=== PATIENT | female | born 1950 | race Caucasian/White ===

== ENCOUNTER 2016-07-31 10:09 | Day surgery (SDC) | payer OTHER ==
[~2016-07-31 10:09] MED LIST: Acetaminophen TAB* 325 MG PO PRN; Buffered Lidocaine 0.9% SYRIN* 5 ML/SYR SYRINGE INTRADERM ONE
[2016-07-31] MEDS ORDERED: Midazolam* 1 MG/ML 2 ML VIAL (2 MG) ONE (11:15)
[2016-07-31 12:07] VITALS: BP 134/72
[2016-07-31] MEDS ORDERED: Povidone Iodine 5% OPTH* 30 ML BTL ONE (14:21)
[2016-07-31] MEDS ORDERED: acetaZOLAMIDE TAB* 250 MG ONE (14:21)
[2016-07-31] MEDS ORDERED: Lidocaine 1% MPF* 2 ML VIAL ONE (14:21)
[2016-07-31] MEDS ORDERED: Neomycin/Polymy/Dex OPHTH.OIN* 3.5 GM ONE (14:21)
[2016-07-31] MEDS ORDERED: Phenylephrine 2.5% OPTH.SOL* 2 ML BTL ONE (14:21)
[2016-07-31] MEDS ORDERED: Flurbiprofen 0.03% OPTH.SOL* 2.5 ML BTL ONE (14:21)
[2016-07-31] MEDS ORDERED: Cyclopentolate 1% OPTH.SOL* 2 ML BTL ONE (14:21)
[2016-07-31] MEDS ORDERED: Tropicamide 1% OPTH.SOL* BTL ONE (14:22)
[2016-07-31] MEDS ORDERED: Buffered Lidocaine 0.9% SYRIN* 5 ML/SYR SYRINGE ONE (14:22)
[2016-07-31] MEDS ORDERED: Tetracaine 0.5% OPTH.SOL 4 ML* 1 DROP BTL ONE (14:22)
--- NOTE | 2016-08-01 07:57 | OP ---
DATE OF OPERATION: 07/31/16 - FORMERLY [facility] DATE OF : 54 SURGEON: Topher Thompson MD ANESTHESIOLOGIST: Mandeep Dyer MD ANESTHESIA: Monitored anesthesia care. PRE-OP DIAGNOSIS: Cataract, right eye. POST-OP DIAGNOSIS: Cataract, right eye. OPERATIVE PROCEDURE: Cataract surgery in the right eye. ANESTHESIA: Monitored anesthesia care. IMPLANT: SN60WF 23.5 diopter lens to the right eye. COMPLICATIONS: None. DESCRIPTION OF PROCEDURE: The patient was given phenylephrine 2.5% and cyclopentolate 1% eye drops to the operative eye in the preoperative area. The patient was brought to the operating room, where time-out was taken to identify the correct patient, site, and side of the surgery. The patient's right eye was prepped and draped in the usual sterile fashion with 5% Betadine. A second time- out was taken to verify the correct patient, site, and side of surgery, and correct lens selection. A lid speculum was placed to the right eye. A 1- mm paracentesis blade was used to make a clear corneal incision in the superotemporal position. Preservative-free 1% lidocaine was injected in the anterior chamber. DisCoVisc was then injected in the anterior chamber. A 2.75- mm keratome blade was used to make a triplanar incision at the inferotemporal position. A cystotome initiated a capsulorrhexis, which was completed with Utrata forceps in a continuous and curvilinear manner. Hydrodissection of the lens was performed with BSS on a cannula. The lens could be spun in the capsular bag. The phacoemulsification handpiece was used with divide-and- conquer technique to remove the nucleus in its entirety with 13.9 CDE. The I/A handpiece then removed the residual cortical lens material. DuoVisc was injected to inflate the capsular bag. Planned SN60WF 23.5 diopter lens was then injected into the capsular bag. The residual viscoelastic was removed from the eye with the I/A handpiece. The corneal incisions were hydrated and no leaks occurred at physiologic pressure around 20 mmHg per palpation. The lid speculum was then removed and drapes removed. Maxitrol ointment was placed on the surface of the operative eye. An adhesive patch and shield was placed on the operative eye. The patient was taken to the postoperative area in stable condition. [id number]/[facility] #: [id number] MTDHernandez
== END 2016-07-31 12:23 | disposition home or self-care (01) ==
LOC: OREAST 10:09
PROVIDERS: ATTEND Student in an Organized Health Care Education/Training Program
DX: H25.13 Age-related nuclear cataract, bilateral (principal); H04.123 Dry eye syndrome of bilateral lacrimal glands; K21.9 Gastro-esophageal reflux disease without esophagitis; M06.9 Rheumatoid arthritis, unspecified; Z88.0 Allergy status to penicillin; Z88.2 Allergy status to sulfonamides; Z87.891 Personal history of nicotine dependence
CPT/HCPCS: A9270-GY; J2250; V2632

== ENCOUNTER 2016-08-14 11:00 | Day surgery (SDC) | payer OTHER ==
[~2016-08-14 11:00] MED LIST changes: -Buffered Lidocaine 0.9% SYRIN* 5 ML/SYR SYRINGE INTRADERM ONE; +Midazolam* 1 MG/ML 5 ML VIAL (5 MG) ONE
[2016-08-14 13:05] VITALS: BP 123/66
[2016-08-14] MEDS ORDERED: Neomycin/Polymy/Dex OPHTH.OIN* 3.5 GM ONE (14:29)
[2016-08-14] MEDS ORDERED: Lidocaine 1% MPF* 2 ML VIAL ONE (14:29)
[2016-08-14] MEDS ORDERED: acetaZOLAMIDE TAB* 250 MG ONE (14:29)
[2016-08-14] MEDS ORDERED: Tetracaine 0.5% OPTH.SOL 4 ML* 1 DROP BTL ONE (14:29)
[2016-08-14] MEDS ORDERED: Tropicamide 1% OPTH.SOL* BTL ONE (14:29)
[2016-08-14] MEDS ORDERED: Povidone Iodine 5% OPTH* 30 ML BTL ONE (14:29)
[2016-08-14] MEDS ORDERED: Cyclopentolate 1% OPTH.SOL* 2 ML BTL ONE (14:29)
[2016-08-14] MEDS ORDERED: Phenylephrine 2.5% OPTH.SOL* 2 ML BTL ONE (14:29)
[2016-08-14] MEDS ORDERED: Flurbiprofen 0.03% OPTH.SOL* 2.5 ML BTL ONE (14:29)
--- NOTE | 2016-08-15 14:25 | OP ---
DATE OF OPERATION: 08/14/16 - [facility] DATE OF : 54 SURGEON: Topher Thompson MD ANESTHESIOLOGIST: Eri Neff MD ANESTHESIA: Monitored anesthesia care. PRE-OP DIAGNOSIS: Cataract, left eye. POST-OP DIAGNOSIS: Cataract, left eye. OPERATIVE PROCEDURE: Cataract surgery of the left eye. IMPLANT: SN60WF 22.5 diopter lens to the left eye. COMPLICATIONS: None. DESCRIPTION OF PROCEDURE: The patient was given phenylephrine 2.5% and cyclopentolate 1% eye drops to the operative eye in the preoperative area. The patient was brought to the operating room, where time-out was taken to identify the correct patient, site, and side of the surgery. The patient's left eye was prepped and draped in the usual sterile fashion with 5% Betadine. A second time -out was taken to verify the correct patient, site, and side of surgery, and correct lens selection. A lid speculum was placed to the left eye. A 1-mm paracentesis blade was used to make a clear corneal incision in the superotemporal position. Preservative-free 1% lidocaine was injected in the anterior chamber. DisCoVisc was then injected in the anterior chamber. A 2.75- mm keratome blade was used to make a triplanar incision at the superotemporal position. A cystotome initiated a capsulorrhexis, which was completed with Utrata forceps in a continuous and curvilinear manner. Hydrodissection of the lens was performed with BSS on a cannula. The lens could be spun in the capsular bag. The phacoemulsification handpiece was used with divide-and- conquer technique to remove the nucleus in its entirety with 16.04 CDE. The I/A handpiece then removed the residual cortical lens material. DisCoVisc was injected to inflate the capsular bag. The planned SN60WF 22.5 diopter lens was then injected into the capsular bag. The residual DisCoVisc was removed from the eye with the I/A handpiece. The corneal incisions were hydrated and no leaks occurred at physiologic pressure on 20 mmHg per palpation. The lid speculum was then removed and drapes removed. Maxitrol ointment was placed on the surface of the operative eye. An adhesive patch and shield was placed on the operative eye. The patient was taken to the postoperative area in stable condition. [id number]/[facility] #: [id number] SOY
== END 2016-08-14 13:18 | disposition home or self-care (01) ==
LOC: OREAST 11:00
PROVIDERS: ATTEND Student in an Organized Health Care Education/Training Program
DX: H25.12 Age-related nuclear cataract, left eye (principal); H04.123 Dry eye syndrome of bilateral lacrimal glands; Z87.891 Personal history of nicotine dependence
CPT/HCPCS: A9270-GY; J2250; V2632